=== PATIENT | female | born 1935 | race Caucasian/White ===

== ENCOUNTER 2024-02-15 15:45 | Emergency (ER) | payer OTHER, SELFPAY ==
[2024-02-15 15:49] VITALS: BP 126/91
[2024-02-15 16:41] LABS: % Basophils 0.3 % (0-2); % Eosinophils 2.4 % (0-6); % Immature Granulocytes 0.2 % (0-0.5); % Lymphocytes 30.7 % (20.5-51.1); % Monocytes 10.2 % (1.7-9.3); % Neutrophils 56.2 % (42.2-75.2); Absolute Eosinophils 0.1 10^3/uL (0-0.7); Absolute Lymphocytes 1.8 10^3/uL (1.2-3.4); Absolute Monocytes 0.6 10^3/uL (0.1-0.6); Absolute Neutrophils 3.3 10^3/uL (1.4-6.5); Hematocrit 39.3 % (37.0-47.0); Hemoglobin 13.5 g/dL (12.0-16.0); Mean Corp Hgb Conc. 34.4 g/dL (33.0-37.0); Mean Corpuscular Hgb 32.8 pg (27.0-31.0); Mean Corpuscular Volume 95.4 fL (81.0-99.0); Mean Platelet Volume 8.7 fL (7.4-10.4); Nucleated Red Blood Cells % 0 %; Platelet Count 198 10^3/uL (130-400); Red Blood Cell Count 4.12 10^6/uL (4.20-5.40); Red Cell Dist. Width 12.2 % (11.5-14.5); White Blood Cell Count 5.8 10^3/uL (4.8-10.8)
[2024-02-15 17:04] LABS: ALT (SGPT) 30 U/L (0-35); AST (SGOT) 33 U/L (14-36); Albumin 4.5 g/dl (3.5-5.0); Alkaline Phosphatase 62 U/L (38-126); Blood Urea Nitrogen 23 mg/dl (7-17); Carbon Dioxide 28 mmol/L (22-30); Chloride 102 mmol/L (98-107); Glucose 90 mg/dl (70-99); Potassium 4.3 mmol/L (3.5-5.1); Sodium 138 mmol/L (135-145); Total Bilirubin 0.6 mg/dl (0.2-1.3); Total Protein 7.1 g/dl (6.3-8.2); eGFR > 60.00
[2024-02-15] MEDS: NSS 500 IV (17:42)
[2024-02-15 17:46] VITALS: BP 145/102
[2024-02-15 18:00] VITALS: BP 149/85
[2024-02-15 18:49] LABS: Urine Albumin Negative (Neg - Trace); Urine Bilirubin Negative (Negative); Urine Character Clear (Clear); Urine Color Yellow; Urine Glucose Negative (Negative); Urine Ketone Negative (Negative); Urine Leukocyte Trace (Negative); Urine Nitrite Negative (Negative); Urine Occult Blood Negative (Negative); Urine Urobilinogen Negative (Neg - 1+)
[2024-02-15 18:57] LABS: Urine Bacteria Few (Negative); Urine Red Blood Cell 0-2 /HPF (0-2); Urine White Cell 0-2 /HPF (0-5)
[2024-02-15 19:00] VITALS: BP 159/92
--- NOTE | 2024-02-15 20:32 | ED.GENMED ---
History of Present Illness
General
Chief Complaint: Musculo-Skeletal Complaint
Source: patient and family
Exam Limitations: none
Time Seen by Provider: 02/15/24 17:01
Nursing documentation reviewed up to this point in time: agreed with
History of Present Illness
History of Present Illness:
88-year-old female presenting to the emergency department today with concerns of feeling weakness throughout the day today also some mild knee pain. Does have chronic knee issues denies any specific symptoms otherwise no chest pain shortness of
breath fevers nausea vomiting.
Past History
Past History
ED Past Medical History: Hypercholesterolemia, Other and Other
ED Past Surgical History: Cholecystectomy and Orthopedic
Social History
Tobacco: Non-smoker
Alcohol: None
Drug: None
Personal:
Living: with family
Employment: Retired
Family History
Family History: Other (No significant)
Review of Systems
Review of Systems
Allergies reviewed?: Yes
All Other Systems: ROS reviewed and negative except as documented in HPI and ROS
Phy Exam
Physical Exam
Physical Exam:
GENERAL: Alert , in no apparent distress
EYE: pupils equal and reactive
NECK: Supple, no significant adenopathy.
ENT: o/p clr, mmm.
CARDIAC: Regular rate and rhythm .
LUNGS: Clear breath sounds bilaterally, no acute respiratory distress, no wheezes/rales/rhonchi
ABDOMEN: Soft, without focal tenderness, no r/g, no cvat
NEUROLOGICAL: Alert and oriented, no focal neuro deficits
SKIN: Warm and dry, skin intact.
MUSCULOSKELETAL: Normal-appearing knees bilaterally no redness or warmth good range of motion and strength no edema, well perfused.
PSYCH: Normal and appropriate interaction.
Course
Orders/Labs/Results
Orders:
Orders
02/15/24 16:35
Complete Blood Count/With Diff Urgent
Comprehensive Metabolic Panel Urgent
TSH Reflex To Free T4 Urgent
Comment: ADD ON
02/15/24 17:12
EKG [Electrocardiogram (*1)] Urgent
Reason for Study: Fatigue / Weakness
EKG- Treatment ONCE
02/15/24 17:13
Add On- LAB Urgent
Tests Added?: tsh free t4
0.9% Sodium Chloride 500 ml [Nss] 500 ml IV BOLUS
Pt Eval And Treat Urgent
Activity Level: Ambulate
02/15/24 18:40
Add On- LAB Urgent
Tests Added?: TSH reflex
02/15/24 18:41
Urinalysis Reflex To Culture Routine
Date Specimen was Collected: 02/15/24
Time Specimen was Collected: 17:14
Urine Microscopic Reflex Cult Routine
Abnormal Lab Results
02/15/24 02/15/24
16:35 18:41
RBC 4.12 L 10^6/uL
(4.20-5.40)
MCH 32.8 H pg
(27.0-31.0)
Monocytes % 10.2 H %
(1.7-9.3)
BUN 23 H mg/dl
(7-17)
Leukocyte Esterase Rfl Trace A
(Negative)
Urine Bacteria (Reflex) Few A
(Negative)
02/15/24 16:35
02/15/24 16:35
Vital Signs
Initial and Last Documented VS:
Initial Vital Signs
Temp Pulse Resp BP Pulse Ox
98.1 F 93 16 126/91 96
02/15/24 15:49 02/15/24 15:49 02/15/24 15:49 02/15/24 15:49 02/15/24 15:49
Last Documented Vital Signs
Temp Pulse Resp BP Pulse Ox
98.1 F 93 16 159/92 94
02/15/24 15:49 02/15/24 15:49 02/15/24 15:49 02/15/24 19:00 02/15/24 19:15
MDM/Problems Addressed
MDM/Problems Addressed:
88-year-old female presenting to the emergency department today with concerns of bilateral knee pain as well as generalized weakness fatigue. Upon arrival vital signs are normal patient in no distress patient with good range of motion and strength
no redness or warmth of the knees bilaterally. Labs here showing slightly elevated BUN to creatinine ratio was given fluids felt better was able to stand up and walk no additional acute findings denies any additional specific symptoms concerning
this patient stable for discharge return precautions given. Advised for close outpatient follow-up.
*Critical Care Note
Total Time (30-74mins, 75-104mins- exclusive of procedures): Not Applicable
ED Attending Note
-
Portions of this chart may have been created with voice recognition software.� Occasional wrong word or��sound alike� substitutions may have occurred due to the inherent limitations of voice recognition software.
Discharge Plan
Departure
Patient Disposition: Home (Routine Discharge)
Date of Disposition: 02/15/24
Time of Disposition: 20:32
Patient with high blood pressure during this ER visit?: No
Condition: Good
Covid-19: Not Applicable
Discharge Problem:
Fatigue
Instructions: Weakness ED
Prescriptions:
No Action
aspirin [Adult Low Dose Aspirin] 81 MG tablet,delayed release (DR/EC)
81 mg PO DAILY
multivitamin 1 EACH tablet
1 ea PO DAILY
Vitamin D
1 tab PO DAILY
lansoprazole [Prevacid] 15 MG capsule,delayed release(DR/EC)
15 mg PO DAILY
duloxetine 60 MG capsule,delayed release(DR/EC)
60 mg PO DAILY
mirabegron [Myrbetriq] 50 MG tablet extended release 24 hr
50 mg PO DAILY
ibuprofen 200 MG tablet
400 - 600 mg PO Q6HPRN PRN (Reason: moderate pain) Qty: 30 0RF
acetaminophen 325 MG tablet
650 mg PO Q4HPRN PRN (Reason: mild pain) Qty: 30 0RF
hydrocodone-acetaminophen 1 TABLET tablet
1 tab PO Q4HPRN PRN (Reason: pain) Qty: 10 0RF
amoxicillin-pot clavulanate 1 TABLET tablet
1 tab PO BID Qty: 14 0RF
Referrals:
Becka Kitchen MD [Family Provider] -
Activity Restrictions/Additional Instructions:
You came to the emergency department today for concerns of generalized weakness. Here your reassuring assessment and you are able to walk. Please follow closely with orthopedics. Return to the emergency department for any worsening, new or
concerning symptoms.
Interventions
Interventions:
*Risk Screen - Suicide Last Done: 02/15/24 15:49
*General Assessment Last Done: 02/15/24 15:49
*Neglect/Abuse Screening Last Done: 02/15/24 15:49
*Nursing Disposition Last Done: 02/15/24 20:39
ED-Musculoskeletal Assessment Last Done: 02/15/24 17:00
Discharge Date and Time
Discharge Date/Time: 02/15/24 20:39
Print Language: IRISH
[2024-02-15 21:51] LABS: TSH Reflex To Free T4 2.09 uIU/ml (0.47-4.68)
== END 2024-02-15 20:39 | disposition home or self-care (01) ==
LOC: EMR 15:45
PROVIDERS: Physician Assistant; EMERGENCY PHYSICIAN Emergency Medicine; FAMILY PHYSICIAN Family Medicine
DX: R53.83 Other fatigue (principal); E78.00 Pure hypercholesterolemia, unspecified; M25.562 Pain in left knee; M25.561 Pain in right knee; Z90.49 Acquired absence of other specified parts of digestive tract
CPT/HCPCS: 99283; 96360; 80053; 81003; 81015; 84443; 85025; 93005

== ENCOUNTER 2024-05-20 08:35 | Emergency (ER) | payer OTHER, SELFPAY ==
[2024-05-20 08:36] VITALS: BP 149/84
[2024-05-20 09:00] VITALS: BP 128/82
[2024-05-20 09:02] LABS: % Basophils 0.5 % (0-2); % Immature Granulocytes 0.3 % (0-0.5); % Lymphocytes 21.9 % (20.5-51.1); % Monocytes 8.3 % (1.7-9.3); Absolute Eosinophils 0.2 10^3/uL (0-0.7); Absolute Lymphocytes 1.7 10^3/uL (1.2-3.4); Absolute Monocytes 0.6 10^3/uL (0.1-0.6); Absolute Neutrophils 5.1 10^3/uL (1.4-6.5); Hematocrit 36.6 % (37.0-47.0); Hemoglobin 12.5 g/dL (12.0-16.0); Mean Corp Hgb Conc. 34.2 g/dL (33.0-37.0); Mean Corpuscular Hgb 32.9 pg (27.0-31.0); Mean Corpuscular Volume 96.3 fL (81.0-99.0); Mean Platelet Volume 8.7 fL (7.4-10.4); Nucleated Red Blood Cells % 0 %; Platelet Count 202 10^3/uL (130-400); Red Cell Dist. Width 12.4 % (11.5-14.5); White Blood Cell Count 7.7 10^3/uL (4.8-10.8)
[2024-05-20 09:21] LABS: ALT (SGPT) 27 U/L (0-35); AST (SGOT) 32 U/L (14-36); Albumin 4.1 g/dl (3.5-5.0); Alkaline Phosphatase 67 U/L (38-126); Blood Urea Nitrogen 23 mg/dl (7-17); Calcium 9.8 mg/dl (8.4-10.2); Carbon Dioxide 28 mmol/L (22-30); Chloride 104 mmol/L (98-107); Creatine Phosphokinase 104 U/L (30-135); Glucose 100 mg/dl (70-99); Sodium 143 mmol/L (135-145); Total Bilirubin 0.5 mg/dl (0.2-1.3); Total Protein 6.7 g/dl (6.3-8.2); eGFR > 60.00
--- NOTE | 2024-05-20 09:23 | ED.GENMED ---
History of Present Illness
General
Chief Complaint: Cough
Source: patient and ambulance crew
Exam Limitations: none
Time Seen by Provider: 05/20/24 08:40
Nursing documentation reviewed up to this point in time: agreed with
History of Present Illness
History of Present Illness:
88 y/o F
via ems from home, lives with daugher
h/o balance problems, uses walker/wheelchair
basal cell cancer
here with URI sxs x 1 week
cough, congestion
has been sleeping more
also fell once about 4 days ago but didn't hit head
pt apparently was coughing all night last night per daughter who lives with her, so she called 911 to get her ehere
no fever, chills, cp, sob, abd pain, diarrhea, sore throat
she has some nsasl congestion
no UTI sxs
Past History
Past History
ED Past Medical History: Hypercholesterolemia, Other and Other
ED Past Surgical History: Cholecystectomy and Orthopedic
Social History
Tobacco: Non-smoker
Alcohol: None
Drug: None
Personal:
Living: with family
Employment: Retired
Family History
Family History: Other (No significant)
Review of Systems
Review of Systems
Allergies reviewed?: Yes
All Other Systems: Not applicable
Phy Exam
Physical Exam
Physical Exam:
GENERAL: Alert , in no apparent distress
EYE: pupils equal and reactive
NECK: Supple
ENT: b/l TM s clear, pharynx erythematous but no tonsillar hypertrophy or exudates
CARDIAC: Regular rate and rhythm, no edema
LUNGS: Clear breath sounds bilaterally, no acute respiratory distress, no wheezes/rales/rhonchi, occ cough
ABDOMEN: Soft, without focal tenderness, no r/g, no cvat, normal bowel sounds
NEUROLOGICAL: Alert and oriented, no focal neuro deficits
SKIN: Warm and dry, skin intact.
MUSCULOSKELETAL: No edema, well perfused.
PSYCH: Normal and appropriate interaction.
Course
Orders/Labs/Results
Orders:
Orders
05/20/24 08:49
CMP [Comprehensive Metabolic Panel] Urgent
COVID-19 Antigen Urgent
Source: Nasal Swab
Complete Blood Count/With Diff Urgent
Creatine Phosphokinase Urgent
Comment: ADD ON
Lactic Acid Urgent
Influenza A+B Rapid Molecular Urgent
SOHA Source: Nasal Swab
Specimen Description:
05/20/24 09:03
Electrocardiogram (*1) Urgent
Reason for Study: Fatigue / Weakness
EKG- Treatment ONCE
05/20/24 09:08
Add On- LAB Urgent
Tests Added?: CPK
05/20/24 09:10
CR Chest - 2 Views Urgent
Comment:
Reason For Exam: cough x 1 week, weakness
05/20/24 11:05
Urinalysis Reflex To Culture Urgent
Date Specimen was Collected: 05/20/24
Time Specimen was Collected: 11:01
Abnormal Lab Results
05/20/24
08:49
RBC 3.80 L 10^6/uL
(4.20-5.40)
Hct 36.6 L %
(37.0-47.0)
MCH 32.9 H pg
(27.0-31.0)
BUN 23 H mg/dl
(7-17)
Glucose 100 H mg/dl
(70-99)
05/20/24 08:49
05/20/24 08:49
Vital Signs
Initial and Last Documented VS:
Initial Vital Signs
Temp Pulse Resp BP Pulse Ox
98.1 F 94 16 149/84 94
05/20/24 08:36 05/20/24 08:36 05/20/24 08:36 05/20/24 08:36 05/20/24 08:36
Last Documented Vital Signs
Temp Pulse Resp BP Pulse Ox
98.1 F 84 22 122/85 93
05/20/24 08:36 05/20/24 11:30 05/20/24 11:30 05/20/24 11:09 05/20/24 11:30
MDM/Problems Addressed
Differential Diagnosis Includes:
pneumonia, bronchitis, uti, viral syndrome
MDM/Problems Addressed:
88 y/o F with hld, gerd, chronic balance problems trouble walking
here with uri sxs x 1 week, weakness, cough, fell once
no fever, generally weak
not hypoxic
not coughing here
some sinus congestion
labs are reassuring\\
cxr indep reviewed, neg for pna
cvid and flu neg
i spoke with arturo bender said she has same cold symptoms at home
pt has been offered pt and declined; daughter says marilee camejoses pt even at home
and they help her transfer but she is pretty weak chronically and not much worse than baseline
she felt comfortable taking her home
will cover with amoxicillin for suspected sinus finetion
return precautions
pt was able to stand and transfer and walk a few setp with walker which is baseline
*Critical Care Note
Total Time (30-74mins, 75-104mins- exclusive of procedures): Not Applicable
ED Attending Note
-
Portions of this chart may have been created with voice recognition software.� Occasional wrong word or��sound alike� substitutions may have occurred due to the inherent limitations of voice recognition software.
Discharge Plan
Departure
Patient Disposition: Home (Routine Discharge)
Date of Disposition: 05/20/24
Time of Disposition: 11:59
Patient with high blood pressure during this ER visit?: No
Condition: Fair
Covid-19: Not Applicable
Discharge Problem:
Acute upper respiratory infection
Instructions: Upper respiratory infection in adults - Discharge instructions
Prescriptions:
New
amoxicillin 875 mg tablet
875 mg PO BID Qty: 14 0RF
No Action
aspirin [Adult Low Dose Aspirin] 81 MG tablet,delayed release (DR/EC)
81 mg PO DAILY
multivitamin 1 EACH tablet
1 ea PO DAILY
Vitamin D
1 tab PO DAILY
lansoprazole [Prevacid] 15 MG capsule,delayed release(DR/EC)
15 mg PO DAILY
duloxetine 60 MG capsule,delayed release(DR/EC)
60 mg PO DAILY
mirabegron [Myrbetriq] 50 MG tablet extended release 24 hr
50 mg PO DAILY
ibuprofen 200 MG tablet
400 - 600 mg PO Q6HPRN PRN (Reason: moderate pain) Qty: 30 0RF
acetaminophen 325 MG tablet
650 mg PO Q4HPRN PRN (Reason: mild pain) Qty: 30 0RF
hydrocodone-acetaminophen 1 TABLET tablet
1 tab PO Q4HPRN PRN (Reason: pain) Qty: 10 0RF
amoxicillin-pot clavulanate 1 TABLET tablet
1 tab PO BID Qty: 14 0RF
Referrals:
Becka Kitchen MD [Family Provider] - Follow up in 2-3 days
Activity Restrictions/Additional Instructions:
THERE IS NO SIGN OF PNEUMONIA
SHE MAY HAVE SINUS INFECTION
TRY AMOXICILLIN TWICE A DAY FOR 7 DAYS
USE FLONASE NASAL SPRAY
ZYRTEC ONCE A DAY WELL FOR CONGESTION
STAY HYDRATED
RETURN FOR : SEVERE SYPMPTOMS, SHORTNESS OF BREATH, SEVERE WEAKNESS, HIGH FEVER OR ANY CONCERNS.
Interventions
Interventions:
*Risk Screen - Suicide Last Done: 05/20/24 08:44
*General Assessment Last Done: 05/20/24 08:44
*Neglect/Abuse Screening Last Done: 05/20/24 08:44
ED- Fall Risk Assessment Last Done: 05/20/24 08:57
*ED COVID-19 Vaccine History Last Done: 05/20/24 08:46
*Nursing Disposition Last Done: 05/20/24 13:44
ED- Pulmonary Assessment Last Done: 05/20/24 08:56
Discharge Date and Time
Discharge Date/Time: 05/20/24 13:44
Print Language: [email or web address]
[2024-05-20 09:24] LABS: COVID-19 Antigen Negative (Negative)
[2024-05-20 11:09] VITALS: BP 122/85
[2024-05-20 11:18] LABS: Urine Albumin Negative (Neg - Trace); Urine Bilirubin Negative (Negative); Urine Character Clear (Clear); Urine Color Yellow; Urine Glucose Negative (Negative); Urine Ketone Negative (Negative); Urine Leukocyte Negative (Negative); Urine Nitrite Negative (Negative); Urine Occult Blood Negative (Negative); Urine Specific Gravity 1.015 (<1.030); Urine Urobilinogen Negative (Neg - 1+)
--- NOTE | 2024-05-20 13:32 | EDRN ---
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 They were called by the PA at 1200 and told it would be 45 min at that time until they could arrive. I called now and there is no answer. I left a message
== END 2024-05-20 13:44 | disposition home or self-care (01) ==
LOC: EMR 08:35
PROVIDERS: Physician Assistant; EMERGENCY PHYSICIAN Emergency Medicine; FAMILY PHYSICIAN Family Medicine
DX: J06.9 Acute upper respiratory infection, unspecified (principal); R05.9 Cough, unspecified; R26.2 Difficulty in walking, not elsewhere classified; E78.00 Pure hypercholesterolemia, unspecified; K21.9 Gastro-esophageal reflux disease without esophagitis; Z90.49 Acquired absence of other specified parts of digestive tract
CPT/HCPCS: 99283; 71046; 80053; 81003; 82550; 83605; 85025; 87502; 87811; 93005

== ENCOUNTER 2024-06-13 16:32 | Emergency (ER) | payer OTHER, SELFPAY ==
[2024-06-13 16:34] VITALS: BP 168/105
[2024-06-13 17:19] VITALS: BMI 24.8
[2024-06-13] MEDS: ATARAX 12.5 MG PO (17:41)
[2024-06-13] MEDS: LIDOCAINE URO-JET 2% 1 SYRINGE TOPICAL (17:41)
[2024-06-13] MEDS: CLOBETASOL PROPIONATE 0.05% OINTMENT 1 APPLIC TOPICAL (18:17)
--- NOTE | 2024-06-13 19:01 | ED.GENMED ---
History of Present Illness
General
Chief Complaint: Skin Problem
Source: patient
Exam Limitations: none
Time Seen by Provider: 06/13/24 17:17
Nursing documentation reviewed up to this point in time: agreed with
History of Present Illness
History of Present Illness:
Patient to ED with complaint of severe itching to genital area. States this has been ongoing for years but not to this extent. She typically applies OTC ointments but they no longer work. Brought to eD by daughter for eval. Denies fever/chills.
No difficulty urinating. No vaginal discharge.
Past History
Past History
ED Past Medical History: Hypercholesterolemia, Other and Other
ED Past Surgical History: Cholecystectomy and Orthopedic
Social History
Tobacco: Non-smoker
Alcohol: None
Drug: None
Personal:
Living: with family
Employment: Retired
Family History
Family History: Other (No significant)
Phy Exam
General Physical Exam
General Presentation: well appearing and moderate distress
General age: appears stated age
General Skin: warm and dry
General Habitus: normal
General Mental: alert
Cardiovascular Exam
Cardiovascular Exam: regular rate/rhythm and no edema
Gastrointestinal Exam
Gastrointestinal Exam: normal bowel sounds, non tender and soft
Genitourinary Exam Female
Exam Female: no vaginal discharge and other (Vulva erythema and swelling. Pruritic. No skin lesions.)
Musculoskeletal Exam
Musculoskeletal Exam: full ROM and neuro vasc intact
Skin Exam
Skin Exam: normal color and warm/dry
Psychiatric Exam
Psychiatric Exam: normal mood/affect
Course
Orders/Labs/Results
Orders:
Orders
06/13/24 17:33
HydrOXYZINE [Atarax] 12.5 mg PO NOW STA
06/13/24 17:36
Lidocaine 2% [Lidocaine Uro-Jet 2%] 1 syringe TOPICAL NOW STA
06/13/24 17:48
Clobetasol Propionate [Clobetasol Propionate 0.05% Ointment] See Dose Instructions TOPICAL NOW STA
Vital Signs
Initial and Last Documented VS:
Initial Vital Signs
Temp Pulse Resp BP Pulse Ox
98.4 F 90 16 168/105 97
06/13/24 16:34 06/13/24 16:34 06/13/24 16:34 06/13/24 16:34 06/13/24 16:34
Last Documented Vital Signs
Temp Pulse Resp BP Pulse Ox
98.4 F 90 16 168/105 97
06/13/24 16:34 06/13/24 16:34 06/13/24 16:34 06/13/24 16:34 06/13/24 16:34
*Critical Care Note
Total Time (30-74mins, 75-104mins- exclusive of procedures): Not Applicable
Update Note
Update Note:
Patient to ED with complaint of severe itching to gentialia. This has been an ongoing issue for her. Typically treats with OTC steroids but this is no longer working. ON exam vulva is red and swollen. No skin lesions. No vaginal discharge.
LIdocaine gel applied to area for comfort Given dose of Atarax. Area cleansed wth warm water and liquid baby body wash, dried well and then a layer of clobetasol ointment applied. SHe will continue baby wash and clobetasol ointment at home BID.
Atarax to be taken daily at bedtime as this is when her symtoms are most problematic. 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 she is agreeable to plan. Much more comfortable on discharge home.
ED Attending Note
-
Portions of this chart may have been created with voice recognition software.� Occasional wrong word or��sound alike� substitutions may have occurred due to the inherent limitations of voice recognition software.
Discharge Plan
Departure
Patient Disposition: Home (Routine Discharge)
Date of Disposition: 06/13/24
Time of Disposition: 18:49
Patient with high blood pressure during this ER visit?: No
Condition: Good
Covid-19: Not Applicable
Discharge Problem:
Vulvar dermatitis
Instructions: Vulvitis
Prescriptions:
New
clobetasol 0.05 % ointment
1 applic topical QAM AND QPM Qty: 45 0RF
hydroxyzine HCl 25 mg tablet
25 mg PO HS Qty: 30 0RF
No Action
aspirin [Adult Low Dose Aspirin] 81 MG tablet,delayed release (DR/EC)
81 mg PO DAILY
multivitamin 1 EACH tablet
1 ea PO DAILY
Vitamin D
1 tab PO DAILY
lansoprazole [Prevacid] 15 MG capsule,delayed release(DR/EC)
15 mg PO DAILY
duloxetine 60 MG capsule,delayed release(DR/EC)
60 mg PO DAILY
mirabegron [Myrbetriq] 50 MG tablet extended release 24 hr
50 mg PO DAILY
ibuprofen 200 MG tablet
400 - 600 mg PO Q6HPRN PRN (Reason: moderate pain) Qty: 30 0RF
acetaminophen 325 MG tablet
650 mg PO Q4HPRN PRN (Reason: mild pain) Qty: 30 0RF
hydrocodone-acetaminophen 1 TABLET tablet
1 tab PO Q4HPRN PRN (Reason: pain) Qty: 10 0RF
amoxicillin-pot clavulanate 1 TABLET tablet
1 tab PO BID Qty: 14 0RF
amoxicillin 875 mg tablet
875 mg PO BID Qty: 14 0RF
Referrals:
Elidia Marcial DO [Active] - Call in 1-3 days for appt
Becka Kitchen MD [Family Provider] -
Activity Restrictions/Additional Instructions:
Wash genital area before applying steroid ointment. Use baby shampoo for this area. Steroid ointment is to be applied in the morning and evening. Take Hydroxyzine 25mg at bedtime to prevent itching.
Interventions
Interventions:
*Risk Screen - Suicide Last Done: 06/13/24 16:36
*General Assessment Last Done: 06/13/24 17:19
*Neglect/Abuse Screening Last Done: 06/13/24 16:36
ED- Fall Risk Assessment Last Done: 06/13/24 17:19
*ED COVID-19 Vaccine History Last Done: 06/13/24 16:36
*Nursing Disposition Last Done: 06/13/24 19:32
ED-Skin Assessment Last Done: 06/13/24 19:31
Discharge Date and Time
Discharge Date/Time: 06/13/24 19:32
Print Language: SERBIAN
== END 2024-06-13 19:32 | disposition home or self-care (01) ==
LOC: EMR 16:32
PROVIDERS: EMERGENCY PHYSICIAN Student in an Organized Health Care Education/Training Program; FAMILY PHYSICIAN Family Medicine
DX: L30.9 Dermatitis, unspecified (principal); L29.2 Pruritus vulvae; E78.00 Pure hypercholesterolemia, unspecified; Z90.49 Acquired absence of other specified parts of digestive tract
CPT/HCPCS: 99283

== ENCOUNTER 2024-09-16 06:43 | Emergency (ER) | payer OTHER, SELFPAY ==
[2024-09-16 06:49] VITALS: BP 142/86
--- NOTE | 2024-09-16 09:29 | ED.GENMED ---
History of Present Illness
General
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
Source: patient
Time Seen by Provider: 09/16/24 09:13
History of Present Illness
History of Present Illness:
88-year-old female presents to the emergency room complaining of burning and itching in her vaginal area. Symptoms have been present for weeks to months. She put Vaseline in the area to see if that would help but it has not. She was seen by her
primary care doctor on September 06 and was given a oral dose of Diflucan. She states it has not helped. Patient states she has significant burning discomfort when she urinates.
Past History
Past History
ED Past Medical History: Hypercholesterolemia, Other and Other
ED Past Surgical History: Cholecystectomy and Orthopedic
Social History
Tobacco: Non-smoker
Alcohol: None
Drug: None
Personal:
Living: with family
Employment: Retired
Family History
Family History: Other (No significant)
Phy Exam
Physical Exam
Physical Exam:
General: Awake, Alert, Oriented X3. No acute distress.
Vitals: unremarkable
Head: Atraumatic
Eyes: Pupils equal, EOMI
Throat: Airway intact, no exudates
Neck: Trachea midline
Lungs: Clear and equal b/l
Heart: Regular rate, no murmurs
Abd: Soft, Nontender, No pulsatile mass
Genitalia: Erythema noted over the vaginal area, no discharge, no prolapse noted
Neuro: Nonfocal
Skin: Warm, dry, no rash
Extremities: pulses equal b/l, no edema
Course
Orders/Labs/Results
Orders:
Orders
09/16/24 09:28
Straight cath- Treatment ONCE
09/16/24 10:13
Basic Metabolic Panel Urgent
09/16/24 10:14
Complete Blood Count/With Diff Urgent
Urinalysis Reflex To Culture Urgent
Date Specimen was Collected: 09/16/24
Time Specimen was Collected: 09:43
Urine Microscopic Reflex Cult Urgent
Abnormal Lab Results
09/16/24 09/16/24
10:13 10:14
RBC 3.80 L 10^6/uL
(4.20-5.40)
Hct 36.8 L %
(37.0-47.0)
MCH 32.6 H pg
(27.0-31.0)
Monocytes % 10.6 H %
(1.7-9.3)
Eosinophils % 7.0 H %
(0-6)
BUN 22 H mg/dl
(7-17)
Ur Occult Blood Reflex 1+ A
(Negative)
Urine RBC 3-6 A /HPF
(0-2)
Urine Bacteria (Reflex) Few A
(Negative)
Urine Albumin (Reflex) 1+ A
(Neg - Trace)
09/16/24 10:14
09/16/24 10:13
Vital Signs
Initial and Last Documented VS:
Initial Vital Signs
Temp Pulse Resp BP Pulse Ox
98.1 F 100 18 142/86 97
09/16/24 06:49 09/16/24 06:49 09/16/24 06:49 09/16/24 06:49 09/16/24 06:49
Last Documented Vital Signs
Temp Pulse Resp BP Pulse Ox
98.2 F 79 16 148/71 95
09/16/24 13:31 09/16/24 13:31 09/16/24 13:31 09/16/24 13:31 09/16/24 13:31
MDM/Problems Addressed
Differential Diagnosis Includes:
Contact dermatitis, vaginal yeast infection, lichen planus
MDM/Problems Addressed:
Presentation seems most consistent with vaginal yeast infection. She may have failed Diflucan. Will prescribe Monistat for 1 week. 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 Follow-up with primary care doctor.
*Pulse Oximetry
Patient hypoxic: no
*Critical Care Note
Total Time (30-74mins, 75-104mins- exclusive of procedures): Not Applicable
ED Attending Note
-
Portions of this chart may have been created with voice recognition software.� Occasional wrong word or��sound alike� substitutions may have occurred due to the inherent limitations of voice recognition software.
Discharge Plan
Departure
Patient Disposition: Home (Routine Discharge)
Date of Disposition: 09/16/24
Time of Disposition: 12:33
Patient with high blood pressure during this ER visit?: Yes
Condition: Good
Discharge Problem:
Vaginal moniliasis
Instructions: Vaginal Yeast Infection, Adult ED, BLOOD PRESSURE
Prescriptions:
New
miconazole nitrate [Monistat 7] 2 % cream
1 appful vaginal HS 7 Days Qty: 45 0RF
No Action
aspirin [Adult Low Dose Aspirin] 81 MG tablet,delayed release (DR/EC)
81 mg PO DAILY
multivitamin 1 EACH tablet
1 ea PO DAILY
Vitamin D
1 tab PO DAILY
lansoprazole [Prevacid] 15 MG capsule,delayed release(DR/EC)
15 mg PO DAILY
duloxetine 60 MG capsule,delayed release(DR/EC)
60 mg PO DAILY
mirabegron [Myrbetriq] 50 MG tablet extended release 24 hr
50 mg PO DAILY
ibuprofen 200 MG tablet
400 - 600 mg PO Q6HPRN PRN (Reason: moderate pain) Qty: 30 0RF
acetaminophen 325 MG tablet
650 mg PO Q4HPRN PRN (Reason: mild pain) Qty: 30 0RF
hydrocodone-acetaminophen 1 TABLET tablet
1 tab PO Q4HPRN PRN (Reason: pain) Qty: 10 0RF
amoxicillin-pot clavulanate 1 TABLET tablet
1 tab PO BID Qty: 14 0RF
amoxicillin 875 mg tablet
875 mg PO BID Qty: 14 0RF
clobetasol 0.05 % ointment
1 applic topical QAM AND QPM Qty: 45 0RF
hydroxyzine HCl 25 mg tablet
25 mg PO HS Qty: 30 0RF
Referrals:
Lucía Caro DO [Active] -
Becka Kitchen MD [Family Provider] -
Activity Restrictions/Additional Instructions:
Yes the antifungal cream as directed on the package. You can apply a barrier ointment like Desitin to the external
Interventions
Interventions:
*Risk Screen - Suicide Last Done: 09/16/24 06:49
*General Assessment Last Done: 09/16/24 06:49
*Neglect/Abuse Screening Last Done: 09/16/24 10:18
ED- Fall Risk Assessment Last Done: 09/16/24 10:18
*ED COVID-19 Vaccine History Last Done: 09/16/24 06:49
*Nursing Disposition Last Done: 09/16/24 13:31
ED-Female Genitourinary Assessment Last Done: 09/16/24 10:18
Discharge Date and Time
Discharge Date/Time: 09/16/24 14:03
Print Language: [id number]
[2024-09-16 10:00] VITALS: BP 134/68
[2024-09-16 10:26] LABS: % Basophils 0.5 % (0-2); % Immature Granulocytes 0.2 % (0-0.5); % Lymphocytes 30.7 % (20.5-51.1); % Monocytes 10.6 % (1.7-9.3); Absolute Eosinophils 0.4 10^3/uL (0-0.7); Absolute Lymphocytes 1.9 10^3/uL (1.2-3.4); Absolute Monocytes 0.6 10^3/uL (0.1-0.6); Absolute Neutrophils 3.1 10^3/uL (1.4-6.5); Hematocrit 36.8 % (37.0-47.0); Hemoglobin 12.4 g/dL (12.0-16.0); Mean Corp Hgb Conc. 33.7 g/dL (33.0-37.0); Mean Corpuscular Hgb 32.6 pg (27.0-31.0); Mean Corpuscular Volume 96.8 fL (81.0-99.0); Mean Platelet Volume 8.7 fL (7.4-10.4); Nucleated Red Blood Cells % 0 %; Platelet Count 202 10^3/uL (130-400); Red Cell Dist. Width 12.6 % (11.5-14.5)
[2024-09-16 10:43] LABS: Blood Urea Nitrogen 22 mg/dl (7-17); Calcium 10.1 mg/dl (8.4-10.2); Carbon Dioxide 29 mmol/L (22-30); Chloride 102 mmol/L (98-107); Glucose 89 mg/dl (70-99); Potassium 4.1 mmol/L (3.5-5.1); Sodium 141 mmol/L (135-145); eGFR > 60.00
[2024-09-16 10:47] LABS: Urine Albumin 1+ (Neg - Trace); Urine Bilirubin Negative (Negative); Urine Character Clear (Clear); Urine Color Yellow; Urine Glucose Negative (Negative); Urine Ketone Negative (Negative); Urine Leukocyte Negative (Negative); Urine Nitrite Negative (Negative); Urine Occult Blood 1+ (Negative); Urine Urobilinogen Negative (Neg - 1+)
[2024-09-16 12:15] LABS: Urine Mucus Few
[2024-09-16 12:16] LABS: Urine Hyaline Cast 0-2 /LPF (0-2)
[2024-09-16 12:17] LABS: Urine Bacteria Few (Negative); Urine White Cell 0-2 /HPF (0-5)
[2024-09-16 13:31] VITALS: BP 148/71
== END 2024-09-16 14:03 | disposition home or self-care (01) ==
LOC: EMR 06:43
PROVIDERS: EMERGENCY PHYSICIAN Emergency Medicine; FAMILY PHYSICIAN Family Medicine
DX: B37.9 Candidiasis, unspecified (principal); R03.0 Elevated blood-pressure reading, without diagnosis of hypertension
CPT/HCPCS: 99283; 80048; 81003; 81015; 85025

== ENCOUNTER 2025-06-14 10:18 | Emergency (ER) | payer OTHER, SELFPAY ==
[2025-06-14 10:21] VITALS: BP 152/98
[2025-06-14 10:24] VITALS: BP 152/98
[2025-06-14 10:41] LABS: Hematocrit 35.2 % (37.0-47.0); Hemoglobin 11.8 g/dL (12.0-16.0); Mean Corp Hgb Conc. 33.5 g/dL (33.0-37.0); Mean Corpuscular Volume 94.9 fL (81.0-99.0); Nucleated Red Blood Cells % 0 %; Platelet Count 197 10^3/uL (130-400); Red Cell Dist. Width 12.0 % (11.5-14.5)
[2025-06-14 11:00] VITALS: BP 134/84
[2025-06-14 11:00] LABS: ALT (SGPT) 20 U/L (0-35); AST (SGOT) 28 U/L (14-36); Albumin 4.2 g/dl (3.5-5.0); Alkaline Phosphatase 48 U/L (38-126); Blood Urea Nitrogen 18 mg/dl (7-17); Calcium 9.6 mg/dl (8.4-10.2); Carbon Dioxide 30 mmol/L (22-30); Chloride 104 mmol/L (98-107); Estimated Creatinine Clearance 55 ml/min; Glucose 93 mg/dl (70-99); Lipase 38 U/L (23-300); Potassium 4.3 mmol/L (3.5-5.1); Sodium 136 mmol/L (135-145); Total Protein 7.0 g/dl (6.3-8.2); eGFR > 60.00
[2025-06-14] MEDS: LR 1000 IV (11:43)
[2025-06-14 12:00] VITALS: BP 138/84
[2025-06-14 13:00] VITALS: BP 151/94
--- NOTE | 2025-06-14 13:40 | ED.GENMED ---
History of Present Illness
General
Chief Complaint: Abdominal Symptoms
Time Seen by Provider: 06/14/25 10:23
Past History
Past History
ED Past Medical History: Hypercholesterolemia, Other and Other
ED Past Surgical History: Cholecystectomy and Orthopedic
Social History
Tobacco: Non-smoker
Alcohol: None
Drug: None
Personal:
Living: with family
Employment: Retired
Family History
Family History: Other (No significant)
Course
Orders/Labs/Results
Orders:
Orders
06/14/25 10:20
Electrocardiogram (*1) Urgent
Reason for Study: Abdominal Pain
EKG- Treatment ONCE
06/14/25 10:27
Complete Blood Count/With Diff Urgent
Comprehensive Metabolic Panel Urgent
Lipase Urgent
06/14/25 11:20
Lactated Ringers [Lr] 1,000 ml IV BOLUS
Abnormal Lab Results
06/14/25
10:27
RBC 3.71 L 10^6/uL
(4.20-5.40)
Hgb 11.8 L g/dL
(12.0-16.0)
Hct 35.2 L %
(37.0-47.0)
MCH 31.8 H pg
(27.0-31.0)
Monocytes % 9.8 H %
(1.7-9.3)
BUN 18 H mg/dl
(7-17)
06/14/25 10:27
06/14/25 10:27
Vital Signs
Initial and Last Documented VS:
Initial Vital Signs
Temp Pulse Resp BP Pulse Ox
98.8 F 90 20 152/98 97
06/14/25 10:21 06/14/25 10:21 06/14/25 10:21 06/14/25 10:21 11/13/25 10:21
Last Documented Vital Signs
Temp Pulse Resp BP Pulse Ox
98.8 F 90 20 152/98 97
06/14/25 10:21 06/14/25 10:21 06/14/25 10:21 06/14/25 10:21 06/14/25 10:21
*Pulse Oximetry
SaO2: 97
Oxygen Mode of Delivery: Room air
ED Attending Note
-
Portions of this chart may have been created with voice recognition software.� Occasional wrong word or��sound alike� substitutions may have occurred due to the inherent limitations of voice recognition software.
Discharge Plan
Departure
Prescriptions:
No Action
aspirin [Adult Low Dose Aspirin] 81 MG tablet,delayed release (DR/EC)
81 mg PO DAILY
multivitamin 1 EACH tablet
1 ea PO DAILY
Vitamin D
1 tab PO DAILY
lansoprazole [Prevacid] 15 MG capsule,delayed release(DR/EC)
15 mg PO DAILY
duloxetine 60 MG capsule,delayed release(DR/EC)
60 mg PO DAILY
mirabegron [Myrbetriq] 50 MG tablet extended release 24 hr
50 mg PO DAILY
ibuprofen 200 MG tablet
400 - 600 mg PO Q6HPRN PRN (Reason: moderate pain) Qty: 30 0RF
acetaminophen 325 MG tablet
650 mg PO Q4HPRN PRN (Reason: mild pain) Qty: 30 0RF
hydrocodone-acetaminophen 1 TABLET tablet
1 tab PO Q4HPRN PRN (Reason: pain) Qty: 10 0RF
amoxicillin-pot clavulanate 1 TABLET tablet
1 tab PO BID Qty: 14 0RF
amoxicillin 875 mg tablet
875 mg PO BID Qty: 14 0RF
clobetasol 0.05 % ointment
1 applic topical QAM AND QPM Qty: 45 0RF
hydroxyzine HCl 25 mg tablet
25 mg PO HS Qty: 30 0RF
miconazole nitrate [Monistat 7] 2 % cream
1 appful vaginal HS 7 Days Qty: 45 0RF
Referrals:
UNKNOWN - PT DOES,NOT KNOW [Family Provider]
Interventions
Interventions:
*Risk Screen - Suicide Last Done: 06/14/25 10:21
*General Assessment Last Done: 06/14/25 10:21
*Neglect/Abuse Screening Last Done: 06/14/25 10:21
*ED COVID-19 Vaccine History Last Done: 06/14/25 10:49
*ED Influenza Vaccine History Last Done: 06/14/25 10:49
YL-Wfgxdr-Rbezgypyse Assessment Last Done: 06/14/25 10:49
Discharge Date and Time
Print Language: LAO
--- NOTE | 2025-06-14 13:40 | ED.GENMED ---
History of Present Illness
<Francisco De Guzman PA-C - Last Filed: 06/14/25 15:35>
General
Chief Complaint: Abdominal Symptoms
Time Seen by Provider: 06/14/25 10:23
History of Present Illness
History of Present Illness:
89-year-old female with history of hyperlipidemia and GERD presents to the Emergency Department for evaluation of generalized weakness associated with diarrhea that has been ongoing for at least 1 month. She is a poor historian in her history
ferryvan, inform nursing staff that her diarrhea has been ongoing for 3 months however informed myself of 1 month duration. Denies bloody diarrhea. She describes it as 'gushing' but is unable to do delineate how many times per day it is occurring.
No associated fevers or chills. Uncertain if she has lost any weight. Still eating and drinking. Denies any abdominal pain
Past History
<Francisco De Guzman PA-C - Last Filed: 06/14/25 15:35>
Past History
ED Past Medical History: Hypercholesterolemia, Other and Other
ED Past Surgical History: Cholecystectomy and Orthopedic
Social History
Tobacco: Non-smoker
Alcohol: None
Drug: None
Personal:
Living: with family
Employment: Retired
Family History
Family History: Other (No significant)
Review of Systems
<Francisco De Guzman PA-C - Last Filed: 06/14/25 15:35>
Review of Systems
Allergies reviewed?: Yes
All Other Systems: ROS reviewed and negative except as documented in HPI and ROS
Phy Exam
<Francisco De Guzman PA-C - Last Filed: 06/14/25 15:35>
Physical Exam
Physical Exam:
GEN: Well appearing, NAD, WDWN
HEENT: Oral mucosa moist, no scleral icterus
Cardiac: Regular rate and rhythm, no murmur
Lung: No respiratory distress, no tachypnea
Abdomen: Soft, grossly nontender
MSK: No gross deformity or injuries
Skin: Good color, no pallor or jaundice, no rashes
Neuro: AO x3, moves all extremities freely
Psych: Calm, cooperative
Course
<Francisco De Guzman PA-C - Last Filed: 06/14/25 15:35>
Orders/Labs/Results
Orders:
Orders
06/14/25 10:20
Electrocardiogram (*1) Urgent
Reason for Study: Abdominal Pain
EKG- Treatment ONCE
06/14/25 10:27
Complete Blood Count/With Diff Urgent
Comprehensive Metabolic Panel Urgent
Lipase Urgent
06/14/25 11:20
Lactated Ringers [Lr] 1,000 ml IV BOLUS
06/14/25 13:41
Stool Culture Urgent
[facility] Source: Feces/Stool
Specimen Description:
06/14/25 13:47
Calprotectin, Fecal [S] Urgent
C difficile Antigen & Toxins Urgent
[facility] Source: Feces/Stool
Specimen Description:
Norovirus by PCR Urgent
[facility] Source: Feces/Stool
Specimen Description:
Stool For WBC Urgent
[facility] Source: Feces/Stool
Specimen Description:
Abnormal Lab Results
06/14/25
10:27
RBC 3.71 L 10^6/uL
(4.20-5.40)
Hgb 11.8 L g/dL
(12.0-16.0)
Hct 35.2 L %
(37.0-47.0)
MCH 31.8 H pg
(27.0-31.0)
Monocytes % 9.8 H %
(1.7-9.3)
BUN 18 H mg/dl
(7-17)
06/14/25 10:27
06/14/25 10:27
Vital Signs
Initial and Last Documented VS:
Initial Vital Signs
Temp Pulse Resp BP Pulse Ox
98.8 F 90 20 152/98 97
06/14/25 10:21 06/14/25 10:21 06/14/25 10:21 06/14/25 10:21 06/14/25 10:21
Last Documented Vital Signs
Temp Pulse Resp BP Pulse Ox
98.8 F 87 18 164/101 96
06/14/25 15:19 06/14/25 15:19 06/14/25 15:19 06/14/25 15:19 06/14/25 15:19
<Meghann Velazco MD - Last Filed: 06/14/25 13:42>
Orders/Labs/Results
Orders:
Orders
06/14/25 10:20
Electrocardiogram (*1) Urgent
Reason for Study: Abdominal Pain
EKG- Treatment ONCE
06/14/25 10:27
Complete Blood Count/With Diff Urgent
Comprehensive Metabolic Panel Urgent
Lipase Urgent
06/14/25 11:20
Lactated Ringers [Lr] 1,000 ml IV BOLUS
06/14/25 13:41
Stool Culture Urgent
[facility] Source: Feces/Stool
Specimen Description:
06/14/25 13:47
Calprotectin, Fecal [S] Urgent
C difficile Antigen & Toxins Urgent
[facility] Source: Feces/Stool
Specimen Description:
Norovirus by PCR Urgent
[facility] Source: Feces/Stool
Specimen Description:
Stool For WBC Urgent
[facility] Source: Feces/Stool
Specimen Description:
Abnormal Lab Results
06/14/25
10:27
RBC 3.71 L 10^6/uL
(4.20-5.40)
Hgb 11.8 L g/dL
(12.0-16.0)
Hct 35.2 L %
(37.0-47.0)
MCH 31.8 H pg
(27.0-31.0)
Monocytes % 9.8 H %
(1.7-9.3)
BUN 18 H mg/dl
(7-17)
06/14/25 10:27
06/14/25 10:27
Vital Signs
Initial and Last Documented VS:
Initial Vital Signs
Temp Pulse Resp BP Pulse Ox
98.8 F 90 20 152/98 97
06/14/25 10:21 06/14/25 10:21 06/14/25 10:21 06/14/25 10:21 06/14/25 10:21
Last Documented Vital Signs
Temp Pulse Resp BP Pulse Ox
98.8 F 87 18 164/101 96
06/14/25 15:19 06/14/25 15:19 06/14/25 15:19 06/14/25 15:19 06/14/25 15:19
<Francisco De Guzman PA-C - Last Filed: 06/14/25 15:35>
MDM/Problems Addressed
MDM/Problems Addressed:
Patient was seen by hospitalist for admission considerations however admission was declined due to lack of medical need. Will start the patient on cholestyramine due to her history of cholecystectomy and recent diarrhea, she was unable to provide a
stool specimen here, has a primary care appointment next week to follow-up on the symptoms. Recommend outpatient GI follow-up. She had no abdominal tenderness thus I do not see any indication for CT at this time
<Francisco De Guzman PA-C - Last Filed: 06/14/25 15:35>
*Pulse Oximetry
SaO2: 97
Oxygen Mode of Delivery: Room air
Patient hypoxic: no
*Critical Care Note
Total Time (30-74mins, 75-104mins- exclusive of procedures): Not Applicable
ED Attending Note
<Francisco De Guzman PA-C - Last Filed: 06/14/25 15:35>
-
Portions of this chart may have been created with voice recognition software.� Occasional wrong word or��sound alike� substitutions may have occurred due to the inherent limitations of voice recognition software.
<Meghann Velazco MD - Last Filed: 06/14/25 13:42>
ED Attending Note
Patient seen and examined by attending physician: Yes
I performed the substantive portion of visit, reviewed & personally made and approve the management plan that is documented in note by myself or DONYA.: Yes
ED Attending Note:
I have seen and evaluated the patient with a [id number] encounter. I have spoken to the [DONYA] and involved in the medical history, the physical exam, medical decision making.
Evaluation and management service: agree unless noted differently below.
Results interpretation: agree unless noted differently below.
89-year-old woman presenting to the emergency department with diarrhea for the past month. Patient states that she has had,'s episodes. Is not bloody. No nausea no vomiting. She does feel slightly weak and dehydrated. Denies any abdominal pain.
No recent travel. No antibiotics. On arrival vitals are unremarkable. Exam does show dry oral mucosa but soft nondistended nontender abdomen. Will check blood and give IV fluids. Likely will need admission for dehydration/weakness
Discharge Plan
Departure
Patient Disposition: Home (Routine Discharge)
Date of Disposition: 06/14/25
Time of Disposition: 13:42
Patient with high blood pressure during this ER visit?: No
Discharge Problem:
Diarrhea
Instructions: Diarrhea in teens and adults
Prescriptions:
New
Cholestyramine Light 4 gram powder
4 g PO TID PRN (Reason: diarrhea) Qty: 231 0RF
No Action
aspirin [Adult Low Dose Aspirin] 81 MG tablet,delayed release (DR/EC)
81 mg PO DAILY
mirabegron [Myrbetriq] 50 MG tablet extended release 24 hr
50 mg PO DAILY
lansoprazole 15 mg Capsule,Delayed Release(Dr/Ec)
15 mg PO DAILY
Referrals:
Marily Humphrey MD [Active, Gastroenterology]
Interventions
Interventions:
*Risk Screen - Suicide Last Done: 06/14/25 10:21
*General Assessment Last Done: 06/14/25 10:21
*Neglect/Abuse Screening Last Done: 06/14/25 10:21
*ED COVID-19 Vaccine History Last Done: 06/14/25 10:49
*ED Influenza Vaccine History Last Done: 06/14/25 10:49
JC-Zcvkqj-Fhuedigacq Assessment Last Done: 06/14/25 10:49
Discharge Date and Time
Print Language: SAMOAN
--- NOTE | 2025-06-14 14:10 | CON.HOSP ---
Family Physician
-
Family Physician: NOT KNOW UNKNOWN - PT DOES
Chief Complaint
-
intermittent loose stool
History of Present Illness
89yo F with PMHx of HLD, GERD, urinary incontinence, anxiety, ASCVD brought by her nephew since he was askede by their neighbor to get doctors attention due to recurrent loose stools. Patient confirmed that intermittently she has large loose BM
without blood not associated with abdominal pain. No other complains voiced. Patient lives with his nephew at house and able to move around it, was able to walk into the ED by herself.
Medical History
Past Medical History
Past Medical History: Reports Other
Additional Past Medical History:
See above
Past Surgical History: Reports None
Social History
Tobacco: Former Smoker
Alcohol: None
Drug: None
Allergies / Home Medications
Allergies reflects when Allergies were last updated in [facility] [employer] [facility].
Home Medications with original date entered in [facility] [employer] [facility]
Allergy/Medication List:
Allergies
Allergy/AdvReac Type Severity Reaction Status Date / Time
amphetamine aspartate (From Allergy itchy Verified 06/14/25 10:27
Adderall)
amphetamine sulfate (From Allergy itchy Verified 06/14/25 10:27
Adderall)
dextroamphetamine Allergy Unknown Verified 06/14/25 10:27
dextroamphetamine saccharate Allergy itchy Verified 06/14/25 10:27
(From Adderall)
dextroamphetamine sulfate Allergy itchy Verified 06/14/25 10:27
(From Adderall)
novacaine Allergy numbness,felt Uncoded 06/14/25 10:27
go through
body heart
started
pounding
Home Medications - not updated, managed by family member
aspirin 81 mg tablet,delayed release (Adult Low Dose Aspirin) 81 mg PO DAILY Blood clot prevention/tx 07/23/16
mirabegron 50 mg tablet,extended release 24 hr (Myrbetriq) 50 mg PO DAILY Urinary issue 09/30/20
cholestyramine 4 gram oral powder (Cholestyramine Light) 4 g PO TID PRN diarrhea #231 grams 06/14/25
lansoprazole 15 mg capsule,delayed release 15 mg PO DAILY Gastrointestinal Issue 06/14/25
Review of Systems
-
History Source: Patient
A 12 point Review of Systems was completed except as noted: Yes
Abdomen/GI: Reports See HPI
Physical Exam
Vital Signs
Vital Signs
Temp Pulse Resp BP Pulse Ox
98.8 F 77 18 151/94 97
06/14/25 10:21 06/14/25 13:15 06/14/25 13:15 06/14/25 13:00 06/14/25 13:41
Physical Exam
General: Well Nourished, No Apparent Distress and Comfortable
Respiratory: Clear; Negative Wheezes or Rhonchi
Cardiac: S1/S2 and Regular Rhythm; Negative Tachycardia
GI: Soft, Non Tender, Non Distended and Normal Bowel Sounds
Genito-urinary: No Costovertebral Tend
Musculoskeletal: No Clubbing, No Cyanosis and No Edema
Skin: Warm; Negative Dry
Neuro: Awake, Alert, Oriented, AO x 3 and No Motor Deficits
Psych: Calm and Apparent Dementia
Laboratory Results
-
Laboratory Results
06/14/25 10:27
06/14/25 10:27
Total Bilirubin 0.6 mg/dl (0.2-1.3) 06/14/25 10:27
AST 28 U/L (14-36) 06/14/25 10:27
ALT 20 U/L (0-35) 06/14/25 10:27
Alkaline Phosphatase 48 U/L (38-126) 06/14/25 10:27
Lipase 38 U/L (23-300) 06/14/25 10:27
Data Reviewed
-
Lab Data: Labs Reviewed
Impression / Plan
-
A/P:
Patient on her baseline, can ambulate, no focal abnormalities on exam, labs are unremarkable except very mild anemia
No indication for inpatient w/u, can continue to follow with PCP as outpatient for ongoing concerns
#Recurrent loose stool
reasonable to check for C.diff and cultures
Asymptomatic at this time
advised no laxatives unless hard stool or no BM >24h
##HLD
#GERD
#Urinary incontinence
#ASCVD
cont home meds
I have spent at least 77min reviewing chart, test results, communication with ED staff and providing direct patient care
[2025-06-14 15:19] VITALS: BP 164/101
== END 2025-06-14 16:00 | disposition home or self-care (01) ==
LOC: EMR 10:18
PROVIDERS: EMERGENCY PHYSICIAN Student in an Organized Health Care Education/Training Program
DX: R19.7 Diarrhea, unspecified (principal); E78.00 Pure hypercholesterolemia, unspecified; Z90.49 Acquired absence of other specified parts of digestive tract; Z87.891 Personal history of nicotine dependence; I25.10 Atherosclerotic heart disease of native coronary artery without angina pectoris; K21.9 Gastro-esophageal reflux disease without esophagitis; Z79.899 Other long term (current) drug therapy
CPT/HCPCS: 96360; 99284; 80053; 83690; 85025; 93005

== ENCOUNTER → 2025-07-20 16:05 | Outpatient (REF) | payer OTHER, SELFPAY | LOC: PAVMRI 16:05 | PROVIDERS: ATTENDING PHYSICIAN Family Medicine | DX: F01.A0 Vascular dementia, mild, without behavioral disturbance, psychotic disturbance, mood disturbance, and anxiety (principal) | CPT/HCPCS: 70551 ==